=== PATIENT | female | born 1950 | race Caucasian/White ===

== ENCOUNTER 2019-03-23 09:25 | Day surgery (SDC) | payer BC ==
[2019-03-23] MEDS ORDERED: PROPOFOL 10 MG/ML VIAL IV ONE (09:26)
[2019-03-23] MEDS ORDERED: LIDOCAINE 2% MDV (20MG/ML) 20ML VIAL IV ONE (09:26)
--- NOTE | 2019-03-24 09:00 | Operative Note ---
OPERATION: ESOPHAGOGASTRODUODENOSCOPY with photo. PREOPERATIVE DIAGNOSIS: Epigastric pain. POSTOPERATIVE DIAGNOSES: 1. Multiple antral ulcers without stigmata of recent hemorrhage. 2. Hiatal hernia. PROCEDURE: After informed consent was obtained from the patient, she was placed in the left lateral decubitus position in the endoscopy suite, sedated and monitored by the department of anesthesia. A well-lubricated [id number] gastroscope was placed in the posterior oropharynx under direct visualization and passed to the proximal esophagus. The endoscope was advanced through the proximal, mid, and distal esophagus. The esophagus in its length was unremarkable. The GE junction was unremarkable. There was a moderate-size hiatal hernia. The subdiaphragmatic stomach demonstrated normal distensibility, normal rugal folds. In the antrum, there were noted to be multiple ulcerations, circular, of moderate depth without stigmata of recent hemorrhage. The bases were clean, margins were unremarkable and smooth. The pylorus, duodenal bulb, and sweep were unremarkable. J-turn views of the proximal stomach revealed a hiatal hernia. The endoscope was then straightened and retracted from the patient with no new findings noted. RECOMMENDATIONS: The patient should double her Protonix to 40 mg twice per day. She should avoid aspirin and nonsteroidal products and undergo repeat upper endoscopy in 8 weeks. As always, thank you for allowing me to participate in the healthcare of your patients. LOUISE
== END 2019-03-23 11:35 | disposition home or self-care (01) ==
LOC: HOP 09:25
PROVIDERS: ATTEND Internal Medicine Gastroenterology
DX: R10.13 Epigastric pain (principal); R13.10 Dysphagia, unspecified; K21.9 Gastro-esophageal reflux disease without esophagitis; K44.9 Diaphragmatic hernia without obstruction or gangrene; K25.9 Gastric ulcer, unspecified as acute or chronic, without hemorrhage or perforation; I10 Essential (primary) hypertension; E78.00 Pure hypercholesterolemia, unspecified; M19.90 Unspecified osteoarthritis, unspecified site

== ENCOUNTER 2019-06-01 10:25 | Day surgery (SDC) | payer BC ==
[2019-06-01] MEDS ORDERED: PROPOFOL 10 MG/ML VIAL IV ONE (10:26)
[2019-06-01] MEDS ORDERED: LIDOCAINE 2% MDV (20MG/ML) 20ML VIAL IV ONE (10:26)
--- NOTE | 2019-06-02 15:41 | Operative Note ---
OPERATION: ESOPHAGOGASTRODUODENOSCOPY with photo. PREOPERATIVE DIAGNOSIS: Ulcer followup and check for healing. POSTOPERATIVE DIAGNOSES: 1. Healed gastric ulcers with resulting scarring. 2. [id number] hiatal hernia. PROCEDURE: After informed consent was obtained from the patient, she was placed in the left lateral decubitus position in the endoscopy suite, sedated and monitored by the department of anesthesia. Once sedated, a well-lubricated [id number] gastroscope was placed in the posterior oropharynx under direct visualization and passed to the proximal esophagus. The endoscope was advanced through the proximal, mid, and distal esophagus. The GE junction was unremarkable. There was a [id number] hiatal hernia which was measured between 6-7 cm. The subdiaphragmatic stomach demonstrated normal distensibility, normal rugal folds. There were some scarring changes in the area of the prepyloric antrum consistent with the area of prior ulcerations. The duodenal bulb and sweep were unremarkable. J-turn views of the proximal stomach revealed a hiatal hernia but no other abnormalities. The endoscope was straightened and retracted from the patient with no new findings noted. RECOMMENDATIONS: The patient should continue on [id number] PPI, as once per day was not sufficient. As always, thank you for allowing me to participate in the healthcare of your patients. LOUISE
== END 2019-06-01 11:43 | disposition home or self-care (01) ==
LOC: HOP 10:25
PROVIDERS: ATTEND Internal Medicine Gastroenterology
DX: Z09 Encounter for follow-up examination after completed treatment for conditions other than malignant neoplasm (principal); K25.9 Gastric ulcer, unspecified as acute or chronic, without hemorrhage or perforation; K44.9 Diaphragmatic hernia without obstruction or gangrene; I10 Essential (primary) hypertension; E78.00 Pure hypercholesterolemia, unspecified; M19.90 Unspecified osteoarthritis, unspecified site

== ENCOUNTER 2019-09-21 08:05 | Emergency (ER) | payer MEDICARE ==
--- NOTE | 2019-09-21 08:18 | Emergency Department Record ---
History of Present Illness - General Chief complaint: Extremity Problem Stated complaint: WRIST/KNEE PAIN Time Seen by Provider: 09/21/19 08:10 Source: Patient Mode of Arrival: Ambulatory Limitations: No limitations - History of Present Illness Initial comments: 69 yo female presents with right knee pain. She states the onset was at work last night. No specific injury. She is on her feet for her job. She additionally has wrist pain bilaterally. No swelling. No redness. No fever. She did start a sulfa base antibiotic in the last 2 days. No cough, shortness of breath, fever, back pain, swelling, rash. She is not a diabetic. No chronic orthopedic or joint pain. MD Complaint: Extremity pain, Joint pain -: Days(s) (1) Location: Right, Knee -: Yes Arthralgia Quality: Aching Consistency: Constant Improves with: Nothing Worsens with: Palpation, Weight bearing Associated Symptoms: Arthralgias - Related Data Home Medications Medication Instructions Recorded Confirmed Last Taken Rosuvastatin Calcium 5 mg PO DAILY 09/21/19 09/21/19 09/20/19 Sulfamethoxazole/Trimethoprim 1 tab PO BID 09/21/19 09/21/19 09/20/19 [Sulfamethoxazole-Tmp Ds Tablet] Previous Rx's Medication Instructions Recorded Methylprednisolone [Medrol Dose 4 mg PO DAILY #1 tab.ds.pk 09/21/19 Pack] Nitrofurantoin Monohyd/M-Cryst 100 mg PO BID #14 capsule 09/21/19 [Macrobid 100 mg Capsule] Allergies Allergy/AdvReac Type Severity Reaction Status Date / Time Penicillins Allergy HIVES Verified 09/21/19 08:16 Review of Systems Constitutional: Denies: Chills, Fever, Malaise, Weakness Eyes: Denies: Eye discharge ENT: Denies: Congestion, Throat pain Respiratory: Denies: Cough, Dyspnea Cardiovascular: Denies: Chest pain, Edema, Palpitations, Syncope Endocrine: Denies: Fatigue, Polydipsia, Polyuria Gastrointestinal: Denies: Abdominal pain, Diarrhea, Nausea, Vomiting Genitourinary: Denies: Dysuria, Urgency Musculoskeletal: Reports: Arthralgia. Denies: Back pain, Gout, Joint swelling, Myalgia, Neck pain Skin: Denies: Bruising, Change in color, Rash Neurological: Denies: Numbness, Tingling, Tremors, Weakness Psychiatric: Denies: Anxiety Hematological/Lymphatic: Denies: Easy bleeding, Easy bruising Past Medical History - SOCIAL HISTORY Smoking Status: Never smoker - RESPIRATORY Hx Respiratory Disorders: No - CARDIOVASCULAR Hx Cardio Disorders: Yes Hx Hypertension: Yes Comment:: high cholesterol - NEURO Hx Neuro Disorders: No - GI Hx GI Disorders: Yes Hx Reflux: Yes Hx Ulcer: Yes - Hx Genitourinary Disorders: No - ENDOCRINE Hx Endocrine Disorders: No - MUSCULOSKELETAL Hx Musculoskeletal Disorders: Yes Hx Arthritis: Yes (hands) - PSYCH Hx Psych Problems: Yes Hx Anxiety: Yes - HEMATOLOGY/ONCOLOGY Hx Hematology/Oncology Disorders: No Family Medical History Hx Cancer: Brother/Sister, Grandparents *Cancer Comment: colo-rectal, lung Hx HTN: Father Physical Exam - General General Appearance: Alert, Oriented x3, Cooperative, No acute distress - Head Head exam: Normal inspection - Eye Eye exam: Normal appearance, PERRL - ENT ENT exam: Normal exam Ear exam: Normal external inspection Nasal Exam: Normal inspection Mouth exam: Normal external inspection - Neck Neck exam: Normal inspection - Respiratory Respiratory exam: Normal lung sounds bilaterally. negative: Respiratory distress - Cardiovascular Cardiovascular Exam: Regular rate, Normal rhythm, Normal heart sounds Peripheral Pulses: 2+: Radial (R), Radial (L) - GI/Abdominal GI/Abdominal exam: Soft. negative: Tenderness - Rectal Rectal exam: Deferred - exam: Deferred - Extremities Extremities exam: Normal inspection, Full ROM, Normal capillary refill, Tenderness. negative: Calf tenderness, Joint swelling, Pedal edema Image of Full Body: 1 - normal inspection, no edema, no effusion, medial joint line tenderness, full ROM, stable without laxity 2 - normal inpsection of wrists, no warmth, no swelling, full ROM - Back Back exam: Reports: Full ROM. Denies: CVA tenderness (R), CVA tenderness (L), Muscle spasm, Paraspinal tenderness, Rash noted, Tenderness, Vertebral tenderness - Neurological Neurological exam: Alert, Oriented X3 - Psychiatric Psychiatric exam: Normal affect, Normal mood - Skin Skin exam: Dry, Intact, Normal color, Warm. negative: Diaphoretic, Erythema, Mottled Course - Reevaluation(s) Reevaluation #1: 09/21/19 08:50 The knee XR was reviewed Degenerative changes noted with small pre patellar effusion The result report was provided to the patient to discuss with her family doctor She will have switch in the antibiotic in case this is the cause of her pain Her medications were reviewed. She started Crestor in August which could also be a cause She was informed to discussed this with the PCP 09/21/19 08:56 09/21/19 09:04 She is most comfortable straight She will be given a knee immobilizer for support when moving She was warned to take it off most of the time and move the knee to prevent stiffness Disposition Disposition: Discharge Clinical Impression: Arthralgia of knee, right Disposition: Home, Self-Care Condition: (1) Good Instructions: Arthralgia (ED) Additional Instructions: Call your doctor for the next available follow up appointment Return to the ER for a recheck immediately if worse, any new concerns or questions Take the prescriptions provided as directed Apply ice to the knee every 4-6 hours for the next 2-3 days to minimize the pain and prevent swelling Discuss the Crestor with your doctor as this can cause pain too Prescriptions: Nitrofurantoin Monohyd/M-Cryst [Macrobid 100 mg Capsule] 100 mg PO BID #14 capsule Methylprednisolone [Medrol Dose Pack] 4 mg PO DAILY #1 tab.ds.pk Forms: Patient Portal Access Time of Disposition: 08:55 Quality - Quality Measures Quality Measures: N/A - Blood Pressure Screening Does Patient Have Any of the Following: No Blood Pressure Classification: Pre-Hypertensive BP Reading Systolic Measurement: 151 Diastolic Measurement: 83 Screening for High Blood Pressure: < Pre-Hypertensive BP, F/U Documented > [G8950] Pre-Hypertensive Follow-up Interventions: Referral to alternative/primary care provider.
--- NOTE | 2019-09-21 08:54 | RADIOLOGY REPORT ---
EXAMINATION: Right Knee Complete, Four or More Views EXAM DATE: 09/21/2019 8:39 AM TECHNIQUE: Frontal, lateral, oblique and sunrise view INDICATION: knee pain COMPARISON: None ENCOUNTER: Initial FINDINGS: 4 views of the right knee show no evidence of fracture or dislocation. Alignment is anatomic. There i s a small suprapatellar joint effusion. Mild to moderate tricompartment degenerative changes are note d, worst within the patellofemoral joint, with joint space narrowing, subchondral sclerosis, and yris inal aspect os is consistent with osteoarthritis. IMPRESSION: 1. Mild to moderate tricompartment osteoarthritis. 2. Small joint effusion. Dictated by: Kiet Pozo MD on 09/21/2019 8:52 AM. .
== END 2019-09-21 09:16 | disposition home or self-care (01) ==
LOC: ER 08:05
DX: M17.11 Unilateral primary osteoarthritis, right knee (principal); M25.532 Pain in left wrist; M25.531 Pain in right wrist; I10 Essential (primary) hypertension
CPT/HCPCS: 99283